=== PATIENT | female | born 1965 | race Caucasian/White ===

== ENCOUNTER → 2017-02-08 | Outpatient (CLI) | payer MEDICAID ==
[~2017-02-08] MED LIST: DAZIDOX10 MG PO; DOXYCYCLINE 10100 MG PO; EPA FISH OIL1000 MG PO; FLEXERIL10 MG PO; LASIX 20MG TABL20 MG PO; LORTAB 5/500 501 TAB PO; MACROBID 1100 MG/CAP PO; METRONIDAZOLE500 MG PO; NO HOME MEDICATIONS; OXYCONTIN 20MG20 MG PO; OXYCONTIN 80MG80 MG PO; OXYCONTIN30 MG PO; PERCOCET 5/321 UDTAB PO; PRILOSEC 20MG20 MG PO; PRISTIQ 50 MG T50 MG PO; PROAIR HFA0.09 MG/AC IH; ROXICODONE 55 MG/TAB PO; ROXICODONE15 MG PO; SYNTHROID 0.0.025 MG PO; ULTRAM 50MG TAB50 MG PO; XANAX 1MG1 MG PO; ZITHROMAX 250M250 MG PO
== END ==
LOC: COL.RAD 14:28
DX: M51.26 Other intervertebral disc displacement, lumbar region (principal)

== ENCOUNTER → 2018-01-16 | Outpatient (CLI) | payer MEDICAID | LOC: MHCPAIN 14:23 | DX: G89.29 Other chronic pain (principal); M47.817 Spondylosis without myelopathy or radiculopathy, lumbosacral region; M54.16 Radiculopathy, lumbar region; M53.3 Sacrococcygeal disorders, not elsewhere classified; M25.552 Pain in left hip | CPT/HCPCS: G0463 ==

== ENCOUNTER → 2018-01-25 | Outpatient (CLI) | payer MEDICAID | LOC: MHCPAIN 14:39 | DX: M16.12 Unilateral primary osteoarthritis, left hip (principal) | CPT/HCPCS: J1040; Q9967 ==

== ENCOUNTER → 2018-02-27 | Outpatient (CLI) | payer MEDICAID | LOC: MHCPAIN 14:53 | DX: G89.29 Other chronic pain (principal); M47.817 Spondylosis without myelopathy or radiculopathy, lumbosacral region; M53.3 Sacrococcygeal disorders, not elsewhere classified; M16.12 Unilateral primary osteoarthritis, left hip | CPT/HCPCS: G0463 ==

== ENCOUNTER 2018-04-09 16:46 | Observation (INO) | payer MEDICAID ==
[~2018-04-09] VITALS: Ht 167.6 cm; Wt 87.1 kg
[2018-06-05] MEDS ORDERED: LYRICA 100MG C100 M1 PO (06:30)
[2018-06-05] MEDS ORDERED: AMOXICILLIN 50500 MG PO (06:31)
[2018-06-05 06:32] VITALS: BP 113/93; PULSE 81; TEMP 97.8
== END 2018-06-05 08:30 | disposition home or self-care (01) ==
LOC: JCC 06-05 06:04 → EDSTATUS 06-05 10:15
DX: M16.12 Unilateral primary osteoarthritis, left hip (principal); Z53.8 Procedure and treatment not carried out for other reasons; L98.9 Disorder of the skin and subcutaneous tissue, unspecified; Z79.899 Other long term (current) drug therapy; D64.9 Anemia, unspecified; F32.9 Major depressive disorder, single episode, unspecified; E07.9 Disorder of thyroid, unspecified; M79.7 Fibromyalgia; R01.1 Cardiac murmur, unspecified; E03.9 Hypothyroidism, unspecified; F19.90 Other psychoactive substance use, unspecified, uncomplicated; G89.29 Other chronic pain
CPT/HCPCS: J2250; J2704; J3010

== ENCOUNTER → 2018-06-01 | Outpatient (CLI) | payer MEDICAID ==
[2018-06-01 10:05] LABS: HIV 1/2 Antibodies Non-Reactive; HIV-1p24 Antigen Non-Reactive
== END ==
LOC: COL.RAD 09:00
PROVIDERS: Family Medicine
DX: Z01.812 Encounter for preprocedural laboratory examination (principal); Z01.818 Encounter for other preprocedural examination; M16.0 Bilateral primary osteoarthritis of hip

== ENCOUNTER → 2018-06-04 | Outpatient (CLI) | payer MEDICAID ==
[~2018-06-04] MED LIST changes: +AMOXICILLIN 50500 MG PO; +LYRICA 100MG C100 M1 PO
== END ==
LOC: COL.CARD 07:40
DX: Z01.818 Encounter for other preprocedural examination (principal); M16.0 Bilateral primary osteoarthritis of hip

== ENCOUNTER 2018-06-22 11:58 | Inpatient (IN) | payer MEDICAID ==
[~2018-06-22] VITALS: Ht 167.6 cm; Wt 94.5 kg
[2018-07-18] MEDS ORDERED: MENOSTAR1 EACH TD (21:39)
[2018-07-21] MEDS ORDERED: PERCOCET 325 MG1 TA2 PO (09:00)
[2018-07-23] VITALS (10 sets, daily range): BP systolic 97–129; BP diastolic 57–89; PULSE 64–95; TEMP 97.8–97.9
[2018-07-23] MEDS ORDERED: SYNTHROID0.1 MG/TAB PO (09:28)
[2018-07-23] MEDS ORDERED: VITAMIN D 1001000 IU PO (09:31)
[2018-07-23] MEDS ORDERED: VESICARE10 MG PO (09:32)
[2018-07-23] MEDS ORDERED: EFFEXOR 75M75 MG/TAB PO (09:32)
[2018-07-23] MEDS ORDERED: CLIMARA 0.1 PATCH.WK TD (09:33)
[2018-07-23] MEDS ORDERED: IMITREX100 MG PO (09:34)
[2018-07-23] MEDS ORDERED: VISTARIL50 MG PO (09:34)
[2018-07-24] VITALS (7 sets, daily range): BP systolic 88–137; BP diastolic 47–78; PULSE 65–94; TEMP 96.7–98.3
[2018-07-24 06:56] LABS: HEMATOCRIT 28.2 % (37.0-47.0); HEMOGLOBIN 8.8 g/dl (12.5-16.0)
[2018-07-25 01:13] VITALS: BP 83/50; PULSE 76; TEMP 97.7
[2018-07-25 04:01] VITALS: BP 103/57; PULSE 68; TEMP 98.1
[2018-07-25 07:05] VITALS: BP 84/50; PULSE 72; TEMP 97.6
[2018-07-25] MEDS ORDERED: ASPI325T6 PO (07:23)
[2018-07-25] MEDS ORDERED: NORCO 325 MG-7.1 TAB PO (07:23)
[2018-07-25] MEDS ORDERED: ROXICODONE 55 MG/TAB PO (07:24)
[2018-07-25 11:20] VITALS: BP 90/55; PULSE 74; TEMP 98.3
== END 2018-07-25 14:20 | disposition home or self-care (01) | DRG 470 ==
LOC: JCC 07-23 08:50
PROVIDERS: Orthopaedic Surgery
PROC: 0SRB0JZ Replacement of Left Hip Joint with Synthetic Substitute, Open Approach (ICD-10-PCS; principal; 2018-07-23 13:00)
DX: M16.12 Unilateral primary osteoarthritis, left hip (principal); M79.7 Fibromyalgia; I10 Essential (primary) hypertension; F32.9 Major depressive disorder, single episode, unspecified; Z23 Encounter for immunization
CPT/HCPCS: A4314; A4315; A9284; C1713; C1776; J0690; J1100; J1170; J2250; J2405; J2704; J7120

== ENCOUNTER 2018-07-18 21:13 | Emergency (ER) | payer MEDICAID ==
[~2018-07-18] VITALS: Ht 170.2 cm; Wt 90.9 kg
[2018-07-18 21:18] VITALS: BP 124/86; TEMP 97.7
[2018-07-18] MEDS ORDERED: MENOSTAR1 EACH TD (21:39)
[2018-07-18 22:58] VITALS: PULSE 85
== END 2018-07-18 22:58 | disposition home or self-care (01) ==
LOC: COL.ER 21:13
DX: M54.5 Low back pain (principal); M25.552 Pain in left hip; G89.29 Other chronic pain; E03.9 Hypothyroidism, unspecified; Z79.891 Long term (current) use of opiate analgesic; W06.XXXA Fall from bed, initial encounter; Y92.009 Unspecified place in unspecified non-institutional (private) residence as the place of occurrence of the external cause
CPT/HCPCS: J1170; J2060; J2405

== ENCOUNTER 2018-07-21 05:44 | Emergency (ER) | payer MEDICAID ==
[~2018-07-21] VITALS: Ht 167.6 cm; Wt 90.9 kg
[~2018-07-21 05:44] MED LIST changes: +MENOSTAR1 EACH TD
[2018-07-21 05:47] VITALS: TEMP 97.7
[2018-07-21 08:58] VITALS: BP 100/62; PULSE 74
[2018-07-21] MEDS ORDERED: PERCOCET 325 MG1 TA2 PO (09:00)
== END 2018-07-21 09:10 | disposition home or self-care (01) ==
LOC: COL.ER 05:44
DX: M25.552 Pain in left hip (principal); F32.9 Major depressive disorder, single episode, unspecified; G89.29 Other chronic pain; Z90.710 Acquired absence of both cervix and uterus; Z98.890 Other specified postprocedural states
CPT/HCPCS: J1170; J2060